=== PATIENT | female | born 1975 | race Hispanic/Latino ===

== ENCOUNTER 2019-09-24 00:10 | Emergency (ER) | payer MEDICAID, OTHER | END 2019-09-24 00:35 | disposition home or self-care (01) | LOC: EDH 00:10 | DX: O20.0 Threatened abortion (principal); I10 Essential (primary) hypertension; Z3A.01 Less than 8 weeks gestation of pregnancy | CPT/HCPCS: 99281 ==

== ENCOUNTER 2020-04-30 01:13 | Emergency (ER) | payer SELFPAY ==
[2020-04-30 01:28] LABS: APPEARANCE,URINE Clear (CLEAR); BILIRUBIN,URINE Negative (NEGATIVE); COLOR,URINE Yellow (YELLOW); GLUCOSE, URINE (UA) Negative (NEGATIVE); KETONES,URINE Negative (NEGATIVE); LEUKOCYTE ESTERASE ,URINE Negative (NEGATIVE); NITRATE,URINE Negative (NEGATIVE); OCCULT BLOOD,URINE Negative (NEGATIVE); PH,URINE 6.5 (5.0-8.0); PROTEIN,URINE Negative (NEGATIVE); UROBILINOGEN,URINE 0.2 mg/dL (0.2-1.0)
[2020-04-30 01:30] LABS: HCG,QUAL RESULT NEGATIVE (NEGATIVE)
[2020-04-30 02:23] LABS: BASOPHILS % (AUTO) 0.5 % (0.0-5.0); EOSINOPHILS % (AUTO) 1.7 % (0.0-8.0); HEMATOCRIT 30.5 % (36-48); LYMPHOCYTES % (AUTO) 28.2 % (21.0-51.0); MEAN CORPUSCULAR HGB CONC 30.5 g/dL (32.0-36.0); MEAN CORPUSCULAR VOLUME 72.1 fL (79-99); MONOCYTES % (AUTO) 9.6 % (3.0-13.0); NEUTROPHILS % (AUTO) 59.8 % (40.0-77.0); PLATELET COUNT (AUTO) 345 K/uL (130-400); RED BLOOD CELL COUNT(AUTO) 4.23 MIL/uL (4.00-5.50); RED CELL DISTRIBUTION WIDTH 17.2 % (11.0-15.5); WHITE BLOOD COUNT (AUTO) 9.2 K/uL (4.8-10.8)
[2020-04-30 02:27] LABS: CREATININE 0.6 mg/dL (0.5-1.5); POTASSIUM 3.6 mmol/L (3.5-5.1)
[2020-04-30] MEDS ORDERED: ORPHENADRINE CITRATE 30 MG/ML ML ONE (02:31)
[2020-04-30] MEDS ORDERED: KETOROLAC TROMETHAMINE 30MG/ML ONE (02:32)
[2020-04-30 03:27] LABS: ERYTHROCYTE SEDIMENTATION RATE 25 MM/HR (0-20)
== END 2020-04-30 05:07 | disposition home or self-care (01) ==
LOC: EDH 01:13
DX: M62.830 Muscle spasm of back (principal); G89.29 Other chronic pain; M54.9 Dorsalgia, unspecified; I10 Essential (primary) hypertension
CPT/HCPCS: 36415; 80048; 81003; 81025; 85025; 85651; 96374; 96375; 99284; J1885; J2360